=== PATIENT | female | born 1995 | race Caucasian/White ===

== ENCOUNTER → 2019-10-15 | Outpatient (CLI) | payer SELFPAY | END | disposition home or self-care (01) | LOC: LAB SHORT 19:20 → LAB 19:20 | PROVIDERS: Physician Assistant | DX: Z12.4 Encounter for screening for malignant neoplasm of cervix (principal) | CPT/HCPCS: 88175 ==

== ENCOUNTER → 2023-09-15 | Outpatient (CLI) | payer OTHER ==
[2023-09-15 17:57] LABS: BASOPHILS ABSOLUTE AUTO 0.03 K/mm3 (0.00-0.23); BASOPHILS PERCENT AUTO 1 % (0-2); EOSINOPHILS ABSOLUTE AUTO 0.44 K/mm3 (0.00-0.68); EOSINOPHILS PERCENT AUTO 7 % (0-6); Hematocrit 41.4 % (33.0-51.0); Hemoglobin 14.2 g/dL (11.5-16.0); IMMATURE GRAN ABSOLUTE AUTO 0.02 K/mm3 (0.00-0.10); IMMATURE GRAN PERCENT AUTO 0 % (0-1); LYMPHOCYTES ABSOLUTE AUTO 2.55 K/mm3 (0.84-5.20); LYMPHOCYTES PERCENT AUTO 41 % (21-46); MONOCYTES ABSOLUTE AUTO 0.37 K/mm3 (0.16-1.47); MONOCYTES PERCENT AUTO 6 % (4-13); Mean Corpuscular HGB Conc 34.3 g/dL (31.5-36.5); Mean Corpuscular Volume 90 fL (80-100); Mean Platelet Volume 10.2 fL (9.1-12.4); NEUTROPHILS ABSOLUTE AUTO 2.82 K/mm3 (1.96-9.15); NEUTROPHILS PERCENT AUTO 45 % (41-73); Platelet Count 260 K/mm3 (150-400); RDW Coefficient Variation 12.6 % (11.7-14.2); RDW Standard Deviation 41.5 fL (35.1-46.3); Red Blood Cell Count 4.58 M/mm3 (3.80-5.20); White Blood Cell Count 6.23 K/mm3 (4.00-11.30)
[2023-09-15 19:31] LABS: Alanine Aminotransfer (ALT/SGP 20 U/L (12-78); Albumin/Globulin Ratio 1.4 (0.8-1.8); Alk Phos 52 U/L (50-136); Anion Gap 3 mmol/L (6-16); Aspartate Aminotrans (AST/SGOT 16 U/L (12-37); Bilirubin, Total 0.4 mg/dL (0.1-1.0); Blood Urea Nitrogen 10 mg/dL (8-24); Bun/Creatinine Ratio 14.4 (12.0-20.0); CHOL/HDL RATIO 3.3; CO2, Blood 26 mmol/L (21-32); Calcium, Blood 8.8 mg/dL (8.5-10.1); Chloride, Blood 111 mmol/L (98-108); Cholesterol 138 mg/dL (50-200); Globulin, Blood 2.9 g/dL (2.2-4.0); Glomerular Filtration Rate 121 (60-); Glucose, Blood 107 mg/dL (70-99); HDL Cholesterol 42 mg/dL (>39); Low Density Lipoprotein Chol 84 mg/dL (0-110); Potassium, Blood 4.2 mmol/L (3.5-5.5); Sodium, Blood 140 mmol/L (136-145); Total Protein, Blood 6.9 g/dL (6.4-8.2); Triglycerides 62 mg/dL (30-140); Very Low Density Lipoprot Chol 12 mg/dL (6-28)
== END ==
LOC: LAB 16:15 → LAB SHORT 16:15
PROVIDERS: Family Medicine
DX: F41.8 Other specified anxiety disorders (principal); E66.9 Obesity, unspecified
CPT/HCPCS: 80053; 80061; 84443; 85025

== ENCOUNTER → 2023-09-27 | Outpatient (CLI) | payer OTHER ==
[2023-09-27 16:24] LABS: Prolactin 11.3 ng/mL
[2023-09-27 16:31] LABS: Progesterone 0.598 ng/mL
[2023-09-29 13:09] LABS: HEMOGLOBIN A1C 5.5 % (4.8-5.6)
[2023-09-30 14:18] LABS: TESTOSTERONE BY MASS SPEC 61 ng/dL (9-55)
[2023-09-30 14:24] LABS: TESTOSTERONE, FREE MASS SPEC 9.3 pg/mL (0.8-7.4)
== END | disposition home or self-care (01) ==
LOC: LAB 14:37 → LAB SHORT 14:37
PROVIDERS: Registered Nurse Community Health
DX: Z31.9 Encounter for procreative management, unspecified (principal)
CPT/HCPCS: 83036; 84144; 84146

== ENCOUNTER → 2024-04-24 | Outpatient (CLI) | payer OTHER ==
[2024-04-24 17:03] LABS: Source, Urine Clean Catch
[2024-04-24 17:47] LABS: Appearance, Urine Clear (Clear); Bilirubin, Urine Neg (Neg); Blood, Urine 1+ (Neg); Color, Urine Yellow (P-Yellow); Glucose Qualitative, Urine Neg (Neg); Ketones, Urine 4+ (Neg); Leukocyte Esterase, Urine 2+ (Neg); Nitrite, Urine Neg (Neg); Protein, Urine 2+ (Neg); Specific Gravity, Urine 1.025 (1.003-1.022); Urobilinogen, Urine 1+ (Normal)
[2024-04-24 18:02] LABS: Bacteria Many /hpf; Mucus Light (0-Heavy); Squamous Epithelial Cells Few /hpf (Few)
[2024-04-24 19:39] LABS: BASOPHILS ABSOLUTE AUTO 0.02 K/mm3 (0.00-0.23); BASOPHILS PERCENT AUTO 0 % (0-2); EOSINOPHILS PERCENT AUTO 1 % (0-6); Hematocrit 42.6 % (33.0-51.0); Hemoglobin 15.4 g/dL (11.5-16.0); IMMATURE GRAN ABSOLUTE AUTO 0.03 K/mm3 (0.00-0.10); IMMATURE GRAN PERCENT AUTO 0 % (0-1); LYMPHOCYTES ABSOLUTE AUTO 2.56 K/mm3 (0.84-5.20); LYMPHOCYTES PERCENT AUTO 26 % (21-46); MONOCYTES ABSOLUTE AUTO 0.45 K/mm3 (0.16-1.47); MONOCYTES PERCENT AUTO 5 % (4-13); Mean Corpuscular HGB 32.9 pg (26.0-34.0); Mean Corpuscular HGB Conc 36.2 g/dL (31.5-36.5); Mean Corpuscular Volume 91 fL (80-100); Mean Platelet Volume 9.9 fL (9.1-12.4); NEUTROPHILS ABSOLUTE AUTO 6.59 K/mm3 (1.96-9.15); NEUTROPHILS PERCENT AUTO 68 % (41-73); Platelet Count 251 K/mm3 (150-400); RDW Coefficient Variation 12.3 % (11.7-14.2); RDW Standard Deviation 40.6 fL (35.1-46.3); Red Blood Cell Count 4.68 M/mm3 (3.80-5.20); White Blood Cell Count 9.75 K/mm3 (4.00-11.30)
[2024-04-26 16:42] LABS: HIV 1,2 COMBO ANTIGEN/ANTIBODY Negative (Negative)
[2024-04-26 17:06] LABS: HEPATITIS C AB CIA INTERP Negative (Negative); HEPATITIS C ANTIBODY CIA INDEX 0.09 IV
[2024-04-27 10:57] LABS: HEPATITIS B SURFACE ANTIGEN Negative (Negative)
== END | disposition home or self-care (01) ==
LOC: LAB SHORT 16:59
PROVIDERS: Registered Nurse Community Health
DX: Z34.91 Encounter for supervision of normal pregnancy, unspecified, first trimester (principal)
CPT/HCPCS: 81001; 84443; 86803; 87086; 87340; 87389

== ENCOUNTER → 2024-05-20 | Outpatient (CLI) | payer OTHER ==
[2024-05-23 04:08] LABS: APTIMA MEDIA TYPE Urine; C. TRACHOMATIS BY TMA Negative (Negative); N. GONORRHOEAE BY TMA Negative (Negative); SPECIMEN SOURCE Urine
== END ==
LOC: LAB SHORT 18:37 → LAB 18:37
PROVIDERS: Registered Nurse Community Health
DX: Z34.91 Encounter for supervision of normal pregnancy, unspecified, first trimester (principal)
CPT/HCPCS: 87491; 87591

== ENCOUNTER → 2024-09-26 | Outpatient (CLI) | payer OTHER ==
[2024-09-26 14:21] LABS: Hematocrit 36.1 % (33.0-51.0); Hemoglobin 12.6 g/dL (11.5-16.0)
== END ==
LOC: LAB 11:09 → LAB SHORT 11:09
PROVIDERS: Registered Nurse Community Health
DX: Z34.93 Encounter for supervision of normal pregnancy, unspecified, third trimester (principal)
CPT/HCPCS: 82950; 85014; 85018

== ENCOUNTER → 2024-11-21 | Outpatient (CLI) | payer BC, OTHER | END | disposition home or self-care (01) | LOC: LAB SHORT 18:39 | DX: Z34.93 Encounter for supervision of normal pregnancy, unspecified, third trimester (principal) | CPT/HCPCS: 87081; 87150 ==

== ENCOUNTER 2024-12-11 19:09 | Inpatient (IN) | payer BC, OTHER ==
[~2024-12-11] VITALS: Ht 172.7 cm; Wt 109.0 kg
[2024-12-11] MEDS ORDERED: Misoprostol 25 MCG Tab VAG SCH (20:00)
[2024-12-11] MEDS ORDERED: Misoprostol 200 MCG Tab PR PRN (20:00)
[2024-12-11] MEDS ORDERED: Methylergonovine Maleate 0.2MG / ML 1ML Amp IM PRN (20:00)
[2024-12-11] MEDS ORDERED: Misoprostol 200 MCG Tab BC PRN (20:00)
[2024-12-11] MEDS ORDERED: FentaNYL 2mcg/ml-Bup 0.1% Epd 250 ML EPI PRN (20:00)
[2024-12-11] MEDS ORDERED: Acetaminophen 500 MG Tab PO PRN (20:00)
[2024-12-11] MEDS ORDERED: Tranexamic Acid 100 ML IV SCH (20:00)
[2024-12-11] MEDS ORDERED: ePHEDrine Sulfate 50 MG/ML 1ML Injection XX PRN (20:00)
[2024-12-11] MEDS ORDERED: OXYTOCIN/RINGER'S LACTATE 500 ML IV PRN (20:00)
[2024-12-11] MEDS ORDERED: Ondansetron HCl 2 MG / ML 2ML Vial IV PRN (20:00)
[2024-12-11] MEDS ORDERED: Carboprost Tromethamine 250 MCG/ML 1ML Amp IM PRN (20:00)
[2024-12-11] MEDS ORDERED: Lactated Ringer's 1,000 ML IV PRN ×3 (20:00→20:05)
[2024-12-11] MEDS ORDERED: Oxytocin 10 Unit / ML Vial IM PRN (20:00)
[2024-12-11] MEDS ORDERED: Calcium Carbonate 500 MG Tab Chew PO PRN (20:05)
[2024-12-11] MEDS ORDERED: FentaNYL Citrate 50 MCG/ML 2 ML Injection IV PRN (20:05)
[2024-12-11 20:37] LABS: BASOPHILS ABSOLUTE AUTO 0.03 K/mm3 (0.00-0.23); BASOPHILS PERCENT AUTO 0 % (0-2); EOSINOPHILS ABSOLUTE AUTO 0.07 K/mm3 (0.00-0.68); EOSINOPHILS PERCENT AUTO 1 % (0-6); Hematocrit 39.4 % (33.0-51.0); Hemoglobin 14.4 g/dL (11.5-16.0); IMMATURE GRAN ABSOLUTE AUTO 0.06 K/mm3 (0.00-0.10); IMMATURE GRAN PERCENT AUTO 1 % (0-1); LYMPHOCYTES ABSOLUTE AUTO 4.26 K/mm3 (0.84-5.20); LYMPHOCYTES PERCENT AUTO 36 % (21-46); MONOCYTES ABSOLUTE AUTO 0.44 K/mm3 (0.16-1.47); MONOCYTES PERCENT AUTO 4 % (4-13); Mean Corpuscular HGB 32.9 pg (26.0-34.0); Mean Corpuscular HGB Conc 36.5 g/dL (31.5-36.5); Mean Corpuscular Volume 90 fL (80-100); Mean Platelet Volume 10.3 fL (9.1-12.4); NEUTROPHILS ABSOLUTE AUTO 7.04 K/mm3 (1.96-9.15); NEUTROPHILS PERCENT AUTO 59 % (41-73); Platelet Count 194 K/mm3 (150-400); RDW Coefficient Variation 12.6 % (11.7-14.2); RDW Standard Deviation 41.4 fL (35.1-46.3); Red Blood Cell Count 4.38 M/mm3 (3.80-5.20)
[2024-12-11] MEDS ORDERED: METFORMIN HCL500 M3 (22:43)
[2024-12-11] MEDS ORDERED: CITALOPRAM HBR20 M9 (22:43)
[2024-12-11] MEDS ORDERED: PANTOPRAZOLE SO40 M2 (22:44)
[2024-12-11] MEDS ORDERED: PRENATE ENHANC1 EACH (22:45)
[2024-12-11] MEDS ORDERED: ASPI81CH (22:46)
[2024-12-11] MEDS ORDERED: ASPI81CH PO (22:46)
[2024-12-11 22:52] VITALS: BP 118/80
[2024-12-11 23:38] VITALS: BP 134/87
[2024-12-12] VITALS (49 sets, daily range): BP systolic 104–155; BP diastolic 60–96
[2024-12-12] MEDS ORDERED: OXYTOCIN/RINGER'S LACTATE 500 ML IV SCH ×2 (05:00→23:00)
[2024-12-12] MEDS ORDERED: Prenatal Vit/FE Fumarate/FA 1 Tab PO ONE (11:30)
[2024-12-12] MEDS ORDERED: Pantoprazole Sodium 40 MG Tab PO SCH (11:30)
[2024-12-12] MEDS ORDERED: Citalopram Hydrobromide 20 MG Tab PO SCH (11:30)
[2024-12-12] MEDS ORDERED: MetFORMIN HCl 500 mg PO SCH (17:00)
[2024-12-12] MEDS ORDERED: FentaNYL Citrate 50 MCG/ML 2 ML Injection ONE (18:21)
[2024-12-12] MEDS ORDERED: NS 0 ML IV ONE (19:32)
[2024-12-12] MEDS ORDERED: NS 100 ML IV ONE (21:30)
[2024-12-12] MEDS ORDERED: Ibuprofen 400 MG Tab PO PRN (22:55)
[2024-12-12] MEDS ORDERED: Lanolin Cream TOP PRN (22:55)
[2024-12-12] MEDS ORDERED: Ketorolac Tromethamine 30mg Vial IV PRN (22:55)
[2024-12-12] MEDS ORDERED: Oxytocin 10 Unit / ML Vial IM ONE (22:55)
[2024-12-12] MEDS ORDERED: Measles/Mumps/Rubella Vaccine 0.5 ML Vial SC ONE (22:55)
[2024-12-12] MEDS ORDERED: OxyCODONE 5 mg/Acetamin 325 mg TABLET PO PRN (22:55)
[2024-12-12] MEDS ORDERED: Methylergonovine Maleate 0.2MG / ML 1ML Amp IM PRN (22:55)
[2024-12-12] MEDS ORDERED: Lactated Ringer's 1,000 ML IV SCH (23:00)
[2024-12-12] MEDS ORDERED: Docusate Sodium 100 MG Cap PO PRN (23:00)
[2024-12-12] MEDS ORDERED: Misoprostol 200 MCG Tab PR PRN (23:00)
[2024-12-12] MEDS ORDERED: Acetaminophen/Codeine 300-30 mg PO PRN (23:00)
[2024-12-12] MEDS ORDERED: Benzocaine Topical Anesthetic Spray 60GM TOP PRN (23:00)
[2024-12-12] MEDS ORDERED: Acetaminophen 325 MG TABLET PO PRN (23:05)
[2024-12-12] MEDS ORDERED: Witch Hazel/Glycerin PADS TOP PRN (23:05)
[2024-12-12] MEDS ORDERED: FLU VACC TS2024-25(6MOS UP)/PF 45 MCG/0.5 ML SYRINGE IM ONE (23:05)
[2024-12-13] VITALS (10 sets, daily range): BP systolic 90–139; BP diastolic 65–92
[2024-12-13 05:53] LABS: BASOPHILS ABSOLUTE AUTO 0.02 K/mm3 (0.00-0.23); BASOPHILS PERCENT AUTO 0 % (0-2); EOSINOPHILS PERCENT AUTO 0 % (0-6); Hematocrit 34.8 % (33.0-51.0); Hemoglobin 12.4 g/dL (11.5-16.0); IMMATURE GRAN ABSOLUTE AUTO 0.08 K/mm3 (0.00-0.10); IMMATURE GRAN PERCENT AUTO 1 % (0-1); LYMPHOCYTES ABSOLUTE AUTO 3.22 K/mm3 (0.84-5.20); LYMPHOCYTES PERCENT AUTO 18 % (21-46); MONOCYTES ABSOLUTE AUTO 0.99 K/mm3 (0.16-1.47); MONOCYTES PERCENT AUTO 6 % (4-13); Mean Corpuscular HGB 32.6 pg (26.0-34.0); Mean Corpuscular HGB Conc 35.6 g/dL (31.5-36.5); Mean Corpuscular Volume 92 fL (80-100); Mean Platelet Volume 10.3 fL (9.1-12.4); NEUTROPHILS ABSOLUTE AUTO 13.29 K/mm3 (1.96-9.15); NEUTROPHILS PERCENT AUTO 76 % (41-73); Platelet Count 163 K/mm3 (150-400); RDW Coefficient Variation 12.4 % (11.7-14.2); RDW Standard Deviation 41.3 fL (35.1-46.3)
[2024-12-13] MEDS ORDERED: Phenyleph/Mineral Oil/Petrolat 1 APPLIC/57 GM Tube PR PRN (09:00)
[2024-12-13] MEDS ORDERED: Prenatal Vit/FE Fumarate/FA 1 Tab PO SCH (09:00)
[2024-12-14 04:35] VITALS: BP 133/87
[2024-12-14 07:48] VITALS: BP 153/92
[2024-12-14 08:03] VITALS: BP 138/83
[2024-12-14 11:16] VITALS: BP 130/91
== END 2024-12-14 12:13 | disposition home or self-care (01) | DRG 807 ==
LOC: OBS 19:09 → BC 19:29
PROVIDERS: ADMIT Registered Nurse Community Health
PROC: 10E0XZZ Delivery of Products of Conception, External Approach (ICD-10-PCS; principal; 2024-12-12)
PROC: 3E0DXGC Introduction of Other Therapeutic Substance into Mouth and Pharynx, External Approach (ICD-10-PCS; 2024-12-12)
PROC: 0HQ9XZZ Repair Perineum Skin, External Approach (ICD-10-PCS; 2024-12-12)
PROC: 10907ZC Drainage of Amniotic Fluid, Therapeutic from Products of Conception, Via Natural or Artificial Opening (ICD-10-PCS; 2024-12-12)
PROC: 3E0R3BZ Introduction of Anesthetic Agent into Spinal Canal, Percutaneous Approach (ICD-10-PCS; 2024-12-12)
PROC: 00HU33Z Insertion of Infusion Device into Spinal Canal, Percutaneous Approach (ICD-10-PCS; 2024-12-12)
DX: O24.429 Gestational diabetes mellitus in childbirth, unspecified control (principal); Z37.0 Single live birth; O99.343 Other mental disorders complicating pregnancy, third trimester; F41.9 Anxiety disorder, unspecified; O99.62 Diseases of the digestive system complicating childbirth; K21.9 Gastro-esophageal reflux disease without esophagitis; Z3A.39 39 weeks gestation of pregnancy; O69.81X0 Labor and delivery complicated by cord around neck, without compression, not applicable or unspecified; O70.0 First degree perineal laceration during delivery; Z90.89 Acquired absence of other organs; Z79.82 Long term (current) use of aspirin; Z79.84 Long term (current) use of oral hypoglycemic drugs; Z79.899 Other long term (current) drug therapy
CPT/HCPCS: 36415; 36416; 51702; 82947; 85025; 86850; 86900; 86901; 86923; A9270; J1885; J2590; J3010; J7120